=== PATIENT | male | born 1960 | race Caucasian/White ===

== ENCOUNTER 2020-06-09 04:43 | Inpatient (IN) | payer MEDICARE, MEDICAID ==
[~2020-06-09] VITALS: Ht 167.6 cm; Wt 57.2 kg
[2020-06-09] MEDS ORDERED: ONDANSETRON HCL 4MG/2ML INJ IV STA (06:32)
[2020-06-09 08:15] LABS: BASOPHILS % 0.9 % (0.0-2.0); EOSINOPHILS % 0.8 % (0.0-5.0); HEMOGLOBIN. 10.8 g/dL (14.0-18.0); LYMPHOCYTES % 10.6 % (20.0-50.0); MEAN CORPUSCULAR HEMOGLOBIN 29.8 pg (28.0-32.0); MEAN CORPUSCULAR VOLUME 90.9 fL (80.0-94.0); MEAN PLATELET VOLUME 8.4 fl (7.4-10.4); MONOCYTES % 3.9 % (2.0-8.0); NEUTROPHILS % 83.8 % (40.0-76.0); PLATELET 172 x1000/uL (130-400); RED BLOOD CELL COUNT 3.63 mill/uL (4.7-6.1)
[2020-06-09 08:23] LABS: CHLORIDE 96 mEq/L (98-107)
[2020-06-09 08:24] LABS: INR 1.1; PROTHROMBIN TIME 11.4 sec (9.6-11.0)
[2020-06-09] MEDS ORDERED: CLONIDINE 0.1MG TABLET PO PRN (10:00)
[2020-06-09] MEDS ORDERED: MORPHINE SULFATE 2 MG/ML CPJ (NOT FOR IM USE) IV PRN (10:00)
[2020-06-09] MEDS ORDERED: ACETAMINOPHEN 325MG TABLET PO PRN (10:00)
[2020-06-09] MEDS ORDERED: ENOXAPARIN 40MG/0.4ML SYR SUBCUT SCH (10:00)
[2020-06-09] MEDS ORDERED: ONDANSETRON HCL 4MG/2ML INJ IV PRN (10:00)
[2020-06-09] MEDS: AMLODIPINE 10MG TABLET PO SCH (11:20)
[2020-06-09] MEDS: ENOXAPARIN 30MG/0.3ML SYR SUBCUT SCH (11:21)
[2020-06-09] MEDS: FOLIC ACID/VITAMIN B COMP W-C TABLET PO SCH (12:27)
[2020-06-09 13:30] VITALS: BP 166/79
[2020-06-09 16:00] VITALS: BP 164/75
[2020-06-09] MEDS: CALCIUM ACETATE 667MG CAPSULE PO SCH ×2 (16:46→17:40)
[2020-06-09] MEDS: HYDRALAZINE HCL 25MG TABLET PO SCH ×2 (16:46→22:00)
[2020-06-09] MEDS: DEXT 5%/0.45% NACL 1000ML 1,000 ML IV SCH (16:47)
[2020-06-09] MEDS ORDERED: DEXTROSE 50% WATER 50ML SYRINGE IV PRN (19:45)
[2020-06-09 20:00] VITALS: BP 161/80
[2020-06-09] MEDS: BLOOD SUGAR DIAGNOSTIC STRIP TEST SCH (20:01)
[2020-06-09] MEDS: INSULIN LISPRO 100 UNITS/ML SUBCUT SCH (21:00)
[2020-06-09] MEDS: LATANOPROST 0.005% OPHTH DROPS 2.5ML EACHEYE SCH (22:36)
[2020-06-10] VITALS: BP 143/73
[2020-06-10 04:00] VITALS: BP 152/50
[2020-06-10] MEDS: DEXT 5%/0.45% NACL 1000ML 1,000 ML IV SCH (05:19)
[2020-06-10] MEDS: BLOOD SUGAR DIAGNOSTIC STRIP TEST SCH ×4 (06:40→20:45)
[2020-06-10] MEDS: HYDRALAZINE HCL 25MG TABLET PO SCH ×3 (06:44→21:01)
[2020-06-10 07:09] LABS: BASOPHILS % 1.7 % (0.0-2.0); EOSINOPHILS % 2.4 % (0.0-5.0); HEMATOCRIT. 29.3 % (42.0-52.0); HEMOGLOBIN. 9.8 g/dL (14.0-18.0); LYMPHOCYTES % 22.8 % (20.0-50.0); MEAN CORPUSCULAR HEMOGLOBIN 30.5 pg (28.0-32.0); MEAN CORPUSCULAR VOLUME 90.8 fL (80.0-94.0); MEAN PLATELET VOLUME 8.1 fl (7.4-10.4); MONOCYTES % 12.8 % (2.0-8.0); NEUTROPHILS % 60.3 % (40.0-76.0); PLATELET 172 x1000/uL (130-400); RED BLOOD CELL COUNT 3.22 mill/uL (4.7-6.1); RED CELL DISTRIBUTION WIDTH 14.2 % (11.6-14.6)
[2020-06-10 07:22] LABS: CHLORIDE 100 mEq/L (98-107)
[2020-06-10 07:30] LABS: HDL CHOLESTEROL 43 mg/dL (40-59)
[2020-06-10 07:33] LABS: LDL CHOLESTEROL 92 mg/dL (5-100)
[2020-06-10] MEDS: CALCIUM ACETATE 667MG CAPSULE PO SCH ×3 (07:40→18:17)
[2020-06-10] MEDS: INSULIN LISPRO 100 UNITS/ML SUBCUT SCH ×4 (07:40→21:00)
[2020-06-10 08:00] VITALS: BP 148/64
[2020-06-10] MEDS: AMLODIPINE 10MG TABLET PO SCH (10:02)
[2020-06-10] MEDS: ENOXAPARIN 30MG/0.3ML SYR SUBCUT SCH (10:02)
[2020-06-10] MEDS: FOLIC ACID/VITAMIN B COMP W-C TABLET PO SCH (10:02)
[2020-06-10 12:00] VITALS: BP 117/49
[2020-06-10 16:00] VITALS: BP 130/82
[2020-06-10 20:00] VITALS: BP 127/62
[2020-06-10] MEDS: LATANOPROST 0.005% OPHTH DROPS 2.5ML EACHEYE SCH (21:00)
[2020-06-11 00:09] VITALS: BP 132/60
[2020-06-11 04:00] VITALS: BP 145/75
[2020-06-11] MEDS: DEXT 5%/0.45% NACL 1000ML 1,000 ML IV SCH (06:37)
[2020-06-11] MEDS: HYDRALAZINE HCL 25MG TABLET PO SCH ×2 (06:37→14:00)
[2020-06-11 06:49] LABS: HEMATOCRIT. 30.7 % (42.0-52.0); HEMOGLOBIN. 10.2 g/dL (14.0-18.0); MEAN CORPUSCULAR HEMOGLOBIN 30.2 pg (28.0-32.0); MEAN CORPUSCULAR VOLUME 90.6 fL (80.0-94.0); MEAN PLATELET VOLUME 7.9 fl (7.4-10.4); PLATELET 183 x1000/uL (130-400); RED BLOOD CELL COUNT 3.39 mill/uL (4.7-6.1); RED CELL DISTRIBUTION WIDTH 14.1 % (11.6-14.6)
[2020-06-11] MEDS: BLOOD SUGAR DIAGNOSTIC STRIP TEST SCH ×3 (07:02→18:05)
[2020-06-11] MEDS: INSULIN LISPRO 100 UNITS/ML SUBCUT SCH ×3 (07:37→17:40)
[2020-06-11 08:00] VITALS: BP 125/58
[2020-06-11] MEDS: AMLODIPINE 10MG TABLET PO SCH (09:14)
[2020-06-11] MEDS: CALCIUM ACETATE 667MG CAPSULE PO SCH ×3 (09:14→17:40)
[2020-06-11] MEDS: FOLIC ACID/VITAMIN B COMP W-C TABLET PO SCH (09:14)
[2020-06-11] MEDS: ENOXAPARIN 30MG/0.3ML SYR SUBCUT SCH (09:14)
[2020-06-11 11:39] LABS: PLATELET ESTIMATE NORMAL
[2020-06-11 12:00] VITALS: BP 113/42
[2020-06-11 14:19] VITALS: BP_SYST 113; BP_SYST 145; BP_DIAS 42; BP_DIAS 72
[2020-06-11 17:00] VITALS: BP 130/71
== END 2020-06-11 19:50 | disposition home or self-care (01) | DRG 291 ==
LOC: ER 04:43 → 8WST 10:14 → EDBEDREQ 10:22 → EDBEDREQTM 10:22 → EDBEDREQSVC 10:23 → ENRESERV 11:23
PROVIDERS: ADMIT Internal Medicine Nephrology; ATTEND Internal Medicine Nephrology
PROC: 5A1D70Z Performance of Urinary Filtration, Intermittent, Less than 6 Hours Per Day (ICD-10-PCS; principal; 2020-06-10)
PROC: 5A1D70Z Performance of Urinary Filtration, Intermittent, Less than 6 Hours Per Day (ICD-10-PCS; 2020-06-11)
DX: I13.2 Hypertensive heart and chronic kidney disease with heart failure and with stage 5 chronic kidney disease, or end stage renal disease (principal); N18.6 End stage renal disease; K52.9 Noninfective gastroenteritis and colitis, unspecified; E11.319 Type 2 diabetes mellitus with unspecified diabetic retinopathy without macular edema; H54.8 Legal blindness, as defined in USA; D64.9 Anemia, unspecified; E11.22 Type 2 diabetes mellitus with diabetic chronic kidney disease; E11.51 Type 2 diabetes mellitus with diabetic peripheral angiopathy without gangrene; I25.10 Atherosclerotic heart disease of native coronary artery without angina pectoris; I50.9 Heart failure, unspecified; E11.43 Type 2 diabetes mellitus with diabetic autonomic (poly)neuropathy; K31.84 Gastroparesis; Z20.828 Contact with and (suspected) exposure to other viral communicable diseases; Z99.2 Dependence on renal dialysis; Z79.899 Other long term (current) drug therapy
CPT/HCPCS: 36415; 71045; 74018; 80048; 80053; 80061; 82962; 83036; 83605; 83735; 83880; 84145; 84484; 85025; 87426; 93005; 93306; 93970; 99291; J1650; J2405

== ENCOUNTER 2020-07-20 12:41 | Emergency (ER) | payer MEDICARE, MEDICAID ==
[~2020-07-20] VITALS: Ht 165.1 cm; Wt 58.0 kg
[2020-07-20] MEDS ORDERED: ACETAMINOPHEN WITH CODEINE 300/30MG TABLET PO ONE (14:00)
[2020-07-20 14:16] VITALS: BP 102/60
[2020-07-20 15:18] LABS: BASOPHILS % 0.7 % (0.0-2.0); EOSINOPHILS % 1.6 % (0.0-5.0); HEMATOCRIT. 28.4 % (42.0-52.0); HEMOGLOBIN. 9.3 g/dL (14.0-18.0); LYMPHOCYTES % 11.1 % (20.0-50.0); MEAN CORPUSCULAR HEMOGLOBIN 29.8 pg (28.0-32.0); MEAN CORPUSCULAR VOLUME 91.6 fL (80.0-94.0); MEAN PLATELET VOLUME 7.2 fl (7.4-10.4); MONOCYTES % 5.7 % (2.0-8.0); NEUTROPHILS % 80.9 % (40.0-76.0); PLATELET 399 x1000/uL (130-400); RED BLOOD CELL COUNT 3.11 mill/uL (4.7-6.1)
[2020-07-20] MEDS ORDERED: PIPERACILLIN/TAZOBACTAM 3.375GM/50ML PREMIX IV ONE (16:30)
[2020-07-20] MEDS ORDERED: VANCOMYCIN 1 G PREMIX 200 ML IV SCH (16:30)
== END 2020-07-20 18:05 | disposition home or self-care (01) ==
LOC: ER 12:41
DX: N50.812 Left testicular pain (principal); E11.9 Type 2 diabetes mellitus without complications; I10 Essential (primary) hypertension; Z98.890 Other specified postprocedural states
CPT/HCPCS: 36415; 76870; 80048; 83605; 85025; 86140; 93976; 99284

== ENCOUNTER 2020-09-28 10:26 | Inpatient (IN) | payer MEDICARE, MEDICAID ==
[~2020-09-28] VITALS: Ht 172.7 cm; Wt 55.3 kg
[2020-09-28] MEDS ORDERED: ACETAMINOPHEN 325MG TABLET PO STA (10:32)
[2020-09-28] MEDS ORDERED: VANCOMYCIN 1 G PREMIX 200 ML IV ONE (11:00)
[2020-09-28] MEDS ORDERED: PIPERACILLIN/TAZ 3.375G PREMIX 50 ML IV ONE (11:00)
[2020-09-28 11:31] LABS: HEMATOCRIT. 32.4 % (42.0-52.0); MEAN CORPUSCULAR VOLUME 84.2 fL (80.0-94.0); MEAN PLATELET VOLUME 8.4 fl (7.4-10.4); PLATELET 173 x1000/uL (130-400); RED BLOOD CELL COUNT 3.84 mill/uL (4.7-6.1); RED CELL DISTRIBUTION WIDTH 18.8 % (11.6-14.6)
[2020-09-28 11:39] LABS: CHLORIDE 97 mEq/L (98-107)
[2020-09-28 11:40] LABS: INR 1.2; PROTHROMBIN TIME 12.6 sec (9.6-11.0)
[2020-09-28] MEDS ORDERED: ACETAMINOPHEN 325MG TABLET PO PRN (12:00)
[2020-09-28] MEDS ORDERED: ENOXAPARIN 40MG/0.4ML SYR SUBCUT SCH (12:00)
[2020-09-28] MEDS ORDERED: ONDANSETRON HCL 4MG/2ML INJ IV PRN (12:00)
[2020-09-28] MEDS ORDERED: CLONIDINE 0.1MG TABLET PO PRN (12:00)
[2020-09-28] MEDS ORDERED: SODIUM CHLORIDE 0.45% 1,000 ML IV SCH (12:00)
[2020-09-28] MEDS ORDERED: MORPHINE SULFATE 2 MG/ML CPJ (NOT FOR IM USE) IV PRN (12:00)
[2020-09-28] MEDS ORDERED: CEFTRIAXONE 1 G PREMIX 50 ML IV SCH (12:00)
[2020-09-28] MEDS: ENOXAPARIN 30MG/0.3ML SYR SUBCUT SCH (12:55)
[2020-09-28] MEDS: CALCIUM ACETATE 667MG CAPSULE PO SCH ×2 (13:14→17:54)
[2020-09-28] MEDS: HYDRALAZINE HCL 25MG TABLET PO SCH ×2 (14:00→21:24)
[2020-09-28 14:08] LABS: PLATELET ESTIMATE NORMAL
[2020-09-28] MEDS ORDERED: HYDR-4134 MT (15:45)
[2020-09-28] MEDS ORDERED: CINA90TA MT (15:45)
[2020-09-28] MEDS ORDERED: DEXTROSE 50% WATER 50ML SYRINGE IV PRN (15:45)
[2020-09-28] MEDS ORDERED: T3 PO (15:45)
[2020-09-28] MEDS ORDERED: NEBI5TAB3 MT (15:45)
[2020-09-28] MEDS ORDERED: METO5TAB94 MT (15:45)
[2020-09-28 15:47] VITALS: BP 116/74
[2020-09-28] MEDS ORDERED: LANTUSUD SUBCUT (15:57)
[2020-09-28] MEDS: BLOOD SUGAR DIAGNOSTIC STRIP TEST SCH ×2 (17:28→21:23)
[2020-09-28] MEDS: INSULIN LISPRO 100 UNITS/ML SUBCUT SCH ×2 (17:29→21:00)
[2020-09-28 20:28] VITALS: BP 133/69
[2020-09-28 23:41] VITALS: BP 110/56
[2020-09-29 04:00] VITALS: BP 133/67
[2020-09-29] MEDS: HYDRALAZINE HCL 25MG TABLET PO SCH ×3 (06:00→21:11)
[2020-09-29] MEDS: BLOOD SUGAR DIAGNOSTIC STRIP TEST SCH ×4 (06:20→21:11)
[2020-09-29 06:44] LABS: MEAN CORPUSCULAR HEMOGLOBIN 26.1 pg (28.0-32.0); MEAN CORPUSCULAR VOLUME 83.5 fL (80.0-94.0); MEAN PLATELET VOLUME 8.1 fl (7.4-10.4); PLATELET 173 x1000/uL (130-400); RED BLOOD CELL COUNT 3.83 mill/uL (4.7-6.1); RED CELL DISTRIBUTION WIDTH 18.8 % (11.6-14.6)
[2020-09-29 06:56] LABS: CHLORIDE 98 mEq/L (98-107)
[2020-09-29 07:09] LABS: LDL CHOLESTEROL 50 mg/dL (5-100)
[2020-09-29 07:12] LABS: HDL CHOLESTEROL 16 mg/dL (40-59)
[2020-09-29] MEDS: INSULIN LISPRO 100 UNITS/ML SUBCUT SCH ×4 (08:10→21:00)
[2020-09-29] MEDS: ENOXAPARIN 30MG/0.3ML SYR SUBCUT SCH (09:06)
[2020-09-29] MEDS: CALCIUM ACETATE 667MG CAPSULE PO SCH ×3 (09:06→17:19)
[2020-09-29] MEDS: FOLIC ACID/VITAMIN B COMP W-C TABLET PO SCH (09:06)
[2020-09-29 11:45] VITALS: BP 132/52
[2020-09-29 12:50] LABS: PLATELET ESTIMATE NORMAL
[2020-09-29] MEDS ORDERED: CEFTRIAXONE 1,000 MG in DEXTROSE 5% WATER 50 ML IV SCH (13:00)
[2020-09-29 14:00] VITALS: BP 129/65
[2020-09-29 16:00] VITALS: BP 141/61
[2020-09-29] MEDS ORDERED: DIATR MEGLU/DIATRIZOATE SOLN 30ML PO SCH (17:00)
[2020-09-29 20:00] VITALS: BP 145/69
[2020-09-29] MEDS: CEFEPIME 1,000 MG in DEXTROSE 5% WATER 50 ML IV SCH (21:49)
[2020-09-30] VITALS: BP 124/61
[2020-09-30 04:00] VITALS: BP 121/60
[2020-09-30 06:27] LABS: EOSINOPHILS % 2.3 % (0.0-5.0); HEMATOCRIT. 30.8 % (42.0-52.0); HEMOGLOBIN. 9.8 g/dL (14.0-18.0); LYMPHOCYTES % 9.1 % (20.0-50.0); MEAN CORPUSCULAR HEMOGLOBIN 26.8 pg (28.0-32.0); MEAN CORPUSCULAR VOLUME 83.9 fL (80.0-94.0); MEAN PLATELET VOLUME 8.1 fl (7.4-10.4); MONOCYTES % 9.1 % (2.0-8.0); NEUTROPHILS % 78.5 % (40.0-76.0); PLATELET 211 x1000/uL (130-400); RED BLOOD CELL COUNT 3.67 mill/uL (4.7-6.1); RED CELL DISTRIBUTION WIDTH 19.4 % (11.6-14.6)
[2020-09-30] MEDS: HYDRALAZINE HCL 25MG TABLET PO SCH ×3 (06:31→21:50)
[2020-09-30] MEDS: BLOOD SUGAR DIAGNOSTIC STRIP TEST SCH ×4 (06:31→20:35)
[2020-09-30] MEDS: INSULIN LISPRO 100 UNITS/ML SUBCUT SCH ×4 (07:50→20:47)
[2020-09-30 08:00] VITALS: BP 139/47
[2020-09-30] MEDS: CALCIUM ACETATE 667MG CAPSULE PO SCH ×3 (08:42→17:52)
[2020-09-30] MEDS: FOLIC ACID/VITAMIN B COMP W-C TABLET PO SCH (08:42)
[2020-09-30] MEDS: ENOXAPARIN 30MG/0.3ML SYR SUBCUT SCH (08:43)
[2020-09-30] MEDS: AMLODIPINE 10MG TABLET PO SCH (09:56)
[2020-09-30 12:00] VITALS: BP 126/71
[2020-09-30 16:00] VITALS: BP 147/65
[2020-09-30] MEDS: LEVOFLOXACIN 500MG PREMIX 100 ML IV SCH (17:52)
[2020-09-30 20:00] VITALS: BP 144/75
[2020-09-30] MEDS: CEFEPIME 1,000 MG in DEXTROSE 5% WATER 50 ML IV SCH (20:35)
[2020-10-01 00:39] VITALS: BP 135/69
[2020-10-01 04:00] VITALS: BP 124/52
[2020-10-01] MEDS: HYDRALAZINE HCL 25MG TABLET PO SCH ×3 (06:12→21:36)
[2020-10-01 06:57] LABS: BASOPHILS % 0.5 % (0.0-2.0); EOSINOPHILS % 1.5 % (0.0-5.0); HEMATOCRIT. 31.6 % (42.0-52.0); HEMOGLOBIN. 9.9 g/dL (14.0-18.0); MEAN CORPUSCULAR HEMOGLOBIN 26.3 pg (28.0-32.0); MEAN CORPUSCULAR VOLUME 83.6 fL (80.0-94.0); MEAN PLATELET VOLUME 8.4 fl (7.4-10.4); MONOCYTES % 7.2 % (2.0-8.0); NEUTROPHILS % 82.8 % (40.0-76.0); PLATELET 235 x1000/uL (130-400); RED BLOOD CELL COUNT 3.78 mill/uL (4.7-6.1); RED CELL DISTRIBUTION WIDTH 19.1 % (11.6-14.6)
[2020-10-01] MEDS: BLOOD SUGAR DIAGNOSTIC STRIP TEST SCH ×4 (07:23→20:59)
[2020-10-01] MEDS: DEXT 5%/0.9% NACL 1,000 ML IV SCH (07:26)
[2020-10-01] MEDS: INSULIN LISPRO 100 UNITS/ML SUBCUT SCH ×4 (07:26→21:00)
[2020-10-01 08:00] VITALS: BP 137/64
[2020-10-01] MEDS: AMLODIPINE 10MG TABLET PO SCH (08:55)
[2020-10-01] MEDS: FOLIC ACID/VITAMIN B COMP W-C TABLET PO SCH (09:01)
[2020-10-01] MEDS: CALCIUM ACETATE 667MG CAPSULE PO SCH ×4 (09:01→18:26)
[2020-10-01] MEDS ORDERED: LOPERAMIDE HCL 2MG CAPSULE PO PRN (11:15)
[2020-10-01 12:00] VITALS: BP 128/58
[2020-10-01] MEDS ORDERED: PROPOFOL 200MG/20ML VIAL IV ONE (14:38)
[2020-10-01 17:45] VITALS: BP 117/86
[2020-10-01] MEDS ORDERED: HYDROCODONE/ACETAMINOPHEN 5/325MG TABLET PO PRN (18:45)
[2020-10-01 20:00] VITALS: BP 133/68
[2020-10-01] MEDS: CEFEPIME 1,000 MG in DEXTROSE 5% WATER 50 ML IV SCH (20:33)
[2020-10-02] VITALS: BP 127/73
[2020-10-02 04:00] VITALS: BP 123/66
[2020-10-02 06:13] LABS: HEMATOCRIT. 30.2 % (42.0-52.0); HEMOGLOBIN. 9.7 g/dL (14.0-18.0); MEAN CORPUSCULAR HEMOGLOBIN 26.8 pg (28.0-32.0); MEAN CORPUSCULAR VOLUME 83.5 fL (80.0-94.0); MEAN PLATELET VOLUME 8.3 fl (7.4-10.4); PLATELET 208 x1000/uL (130-400); RED BLOOD CELL COUNT 3.62 mill/uL (4.7-6.1); RED CELL DISTRIBUTION WIDTH 20.1 % (11.6-14.6)
[2020-10-02] MEDS: HYDRALAZINE HCL 25MG TABLET PO SCH ×3 (06:17→21:30)
[2020-10-02] MEDS: BLOOD SUGAR DIAGNOSTIC STRIP TEST SCH ×4 (07:42→21:24)
[2020-10-02] MEDS: INSULIN LISPRO 100 UNITS/ML SUBCUT SCH ×4 (07:43→21:00)
[2020-10-02 08:07] VITALS: BP 131/65
[2020-10-02] MEDS: FOLIC ACID/VITAMIN B COMP W-C TABLET PO SCH (08:07)
[2020-10-02] MEDS: CALCIUM ACETATE 667MG CAPSULE PO SCH ×3 (08:07→17:14)
[2020-10-02] MEDS: AMLODIPINE 10MG TABLET PO SCH (08:08)
[2020-10-02 11:54] VITALS: BP 105/57
[2020-10-02 16:36] VITALS: BP 116/66
[2020-10-02] MEDS: LEVOFLOXACIN 500MG PREMIX 100 ML IV SCH (17:14)
[2020-10-02 20:00] VITALS: BP 112/52
[2020-10-02] MEDS: CEFEPIME 1,000 MG in DEXTROSE 5% WATER 50 ML IV SCH (21:32)
[2020-10-03] VITALS: BP 112/60
[2020-10-03 00:32] LABS: PLATELET ESTIMATE NORMAL
[2020-10-03 04:00] VITALS: BP 119/62
[2020-10-03] MEDS: HYDRALAZINE HCL 25MG TABLET PO SCH ×3 (05:42→21:18)
[2020-10-03 05:55] LABS: BASOPHILS % 0.8 % (0.0-2.0); EOSINOPHILS % 1.9 % (0.0-5.0); HEMATOCRIT. 30.9 % (42.0-52.0); HEMOGLOBIN. 9.9 g/dL (14.0-18.0); LYMPHOCYTES % 8.6 % (20.0-50.0); MEAN CORPUSCULAR VOLUME 84.5 fL (80.0-94.0); MEAN PLATELET VOLUME 7.8 fl (7.4-10.4); MONOCYTES % 6.2 % (2.0-8.0); NEUTROPHILS % 82.5 % (40.0-76.0); PLATELET 203 x1000/uL (130-400); RED BLOOD CELL COUNT 3.66 mill/uL (4.7-6.1); RED CELL DISTRIBUTION WIDTH 20.2 % (11.6-14.6)
[2020-10-03] MEDS: BLOOD SUGAR DIAGNOSTIC STRIP TEST SCH ×4 (07:20→20:24)
[2020-10-03] MEDS: INSULIN LISPRO 100 UNITS/ML SUBCUT SCH ×4 (07:22→20:24)
[2020-10-03 07:52] VITALS: BP 119/62
[2020-10-03] MEDS: FOLIC ACID/VITAMIN B COMP W-C TABLET PO SCH (08:55)
[2020-10-03] MEDS: CALCIUM ACETATE 667MG CAPSULE PO SCH ×3 (08:55→17:26)
[2020-10-03] MEDS: AMLODIPINE 10MG TABLET PO SCH (08:58)
[2020-10-03] MEDS: DEXT 5%/0.9% NACL 1,000 ML IV SCH ×2 (11:48→13:07)
[2020-10-03 11:55] VITALS: BP 118/62
[2020-10-03 16:40] VITALS: BP 112/85
[2020-10-03 20:00] VITALS: BP 126/73
[2020-10-03] MEDS: CEFEPIME 1,000 MG in DEXTROSE 5% WATER 50 ML IV SCH (20:47)
[2020-10-04] VITALS: BP 117/58
[2020-10-04 04:00] VITALS: BP 132/68
[2020-10-04] MEDS: HYDRALAZINE HCL 25MG TABLET PO SCH ×2 (06:00→14:00)
[2020-10-04] MEDS: BLOOD SUGAR DIAGNOSTIC STRIP TEST SCH ×2 (06:20→12:20)
[2020-10-04 07:16] LABS: EOSINOPHILS % 3.1 % (0.0-5.0); HEMATOCRIT. 32.4 % (42.0-52.0); HEMOGLOBIN. 10.1 g/dL (14.0-18.0); LYMPHOCYTES % 12.6 % (20.0-50.0); MEAN CORPUSCULAR HEMOGLOBIN 26.6 pg (28.0-32.0); MEAN CORPUSCULAR VOLUME 84.8 fL (80.0-94.0); MEAN PLATELET VOLUME 7.5 fl (7.4-10.4); MONOCYTES % 5.7 % (2.0-8.0); NEUTROPHILS % 77.6 % (40.0-76.0); PLATELET 201 x1000/uL (130-400); RED BLOOD CELL COUNT 3.82 mill/uL (4.7-6.1); RED CELL DISTRIBUTION WIDTH 20.5 % (11.6-14.6)
[2020-10-04] MEDS: INSULIN LISPRO 100 UNITS/ML SUBCUT SCH ×2 (07:50→13:04)
[2020-10-04 08:00] VITALS: BP 120/68
[2020-10-04] MEDS: AMLODIPINE 10MG TABLET PO SCH (09:00)
[2020-10-04] MEDS: FOLIC ACID/VITAMIN B COMP W-C TABLET PO SCH (09:08)
[2020-10-04] MEDS: CALCIUM ACETATE 667MG CAPSULE PO SCH ×2 (09:09→12:50)
[2020-10-04 12:00] VITALS: BP 134/75
== END 2020-10-04 14:30 | disposition home or self-care (01) | DRG 853 ==
LOC: ER 10:38 → 7WST 11:45 → EDBEDREQ 11:53 → ENRESERV 13:47 → 6WST 09-29 11:39
PROVIDERS: ADMIT Internal Medicine Nephrology; ATTEND Internal Medicine Nephrology
PROC: 5A1D70Z Performance of Urinary Filtration, Intermittent, Less than 6 Hours Per Day (ICD-10-PCS; 2020-09-29)
PROC: 0VT08ZZ Resection of Prostate, Via Natural or Artificial Opening Endoscopic (ICD-10-PCS; principal; 2020-10-01)
PROC: 0T7D8ZZ Dilation of Urethra, Via Natural or Artificial Opening Endoscopic (ICD-10-PCS; 2020-10-01)
PROC: 0T9B8ZZ Drainage of Bladder, Via Natural or Artificial Opening Endoscopic (ICD-10-PCS; 2020-10-01)
PROC: 5A1D70Z Performance of Urinary Filtration, Intermittent, Less than 6 Hours Per Day (ICD-10-PCS; 2020-10-01)
DX: A41.9 Sepsis, unspecified organism (principal); E43 Unspecified severe protein-calorie malnutrition; N18.6 End stage renal disease; N41.2 Abscess of prostate; I13.2 Hypertensive heart and chronic kidney disease with heart failure and with stage 5 chronic kidney disease, or end stage renal disease; Z68.43 Body mass index [BMI] 50.0-59.9, adult; E11.319 Type 2 diabetes mellitus with unspecified diabetic retinopathy without macular edema; I50.9 Heart failure, unspecified; E11.22 Type 2 diabetes mellitus with diabetic chronic kidney disease; H54.8 Legal blindness, as defined in USA; I25.10 Atherosclerotic heart disease of native coronary artery without angina pectoris; D63.1 Anemia in chronic kidney disease; Z20.822 Contact with and (suspected) exposure to COVID-19; B96.20 Unspecified Escherichia coli [E. coli] as the cause of diseases classified elsewhere; D64.9 Anemia, unspecified; B96.89 Other specified bacterial agents as the cause of diseases classified elsewhere; N40.0 Benign prostatic hyperplasia without lower urinary tract symptoms; N48.21 Abscess of corpus cavernosum and penis; Z99.2 Dependence on renal dialysis; Z90.79 Acquired absence of other genital organ(s); Z79.899 Other long term (current) drug therapy
CPT/HCPCS: 36415; 71045; 72192; 74176; 80048; 80053; 80061; 82728; 82962; 83036; 83605; 83735; 84145; 84484; 85025; 86140; 87070; 87075; 87077; 87186; 88305; 93005; 93970; 96365; 99291; A4565; C1893; J0692; J0696; J1650; J1815; J1956; J2270; J2405; J2543; J2704; J3370; J7042; J7060; U0003